=== PATIENT | female | born 1980 | race Two or more races ===

== ENCOUNTER → 2024-07-06 | Emergency (ER) | payer OTHER ==
[~2024-07-06] VITALS: Ht 170.2 cm; Wt 59.0 kg
[~2024-07-06] MED LIST: AMOX1TAB5 PO; DIPHTH,PERTUSS(ACELL),TET VAC 0.5 ML SYRINGE IM ONE; LIDOCAINE HCL 1% 10ML VIAL ONE; TETANUS & DIPHTHERIA TOX,ADULT 0.5 ML VIAL IM ONE
[2024-07-06 17:33] VITALS: BP 131/81; O2SAT 98
== END | disposition home or self-care (01) ==
LOC: ER 17:06
DX: S81.822A Laceration with foreign body, left lower leg, initial encounter (principal); Y93.11 Activity, swimming; Y93.89 Activity, other specified; Y92.89 Other specified places as the place of occurrence of the external cause
CPT/HCPCS: 12002; 90471; 90714; J1670